=== PATIENT | female | born 1975 ===

== ENCOUNTER 2019-02-19 14:45 | Emergency (ER) | payer SELFPAY ==
[2019-02-19 14:46] VITALS: BMI 24.3
[2019-02-19 14:57] VITALS: BP 138/83; PULSE 62; RESP 16; TEMP 98; O2SAT 97
--- NOTE | 2019-02-19 15:15 | ED PDOC ---
Upper Extremity Pain/Injury Time Seen by Provider: 02/19/19 15:00 Chief Complaint (Nursing): Upper Extremity Problem/Injury Chief Complaint (Provider): Right Elbow Pain History Per: Patient History/Exam Limitations: no limitations Onset/Duration Of Symptoms: Days (x4) Current Symptoms Are (Timing): Still Present Additional Complaint(s): 43 year old female presents to the ED for evaluation of right elbow pain worse with certain movements for the past four days associate with intermittent tingling in the arm and numbness in the fingers. 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 Denies weakness, current numbness/ tingling, chest pain, and shortness of breath. Before arrival, patient took two Advils with good relief. Right hand dominant with frequent use of it at work PMD: none provided Past Medical History Reviewed: Historical Data, Nursing Documentation, Vital Signs Vital Signs: Last Vital Signs Temp 98.0 F 02/19/19 14:54 Pulse 62 02/19/19 14:54 Resp 16 02/19/19 14:54 BP 138/83 02/19/19 14:54 Pulse Ox 97 02/19/19 14:54 - Medical History PMH: No Chronic Diseases - Surgical History Surgical History: Appendectomy, Cholecystectomy - Family History Family History: States: Unknown Family Hx - Immunization History Hx Tetanus Toxoid Vaccination: No Hx Influenza Vaccination: No Hx Pneumococcal Vaccination: No - Home Medications Home Medications: Ambulatory Orders Medication Instructions Recorded Naproxen [Naprosyn] 1 tab PO BID PRN #25 tab 01/10/18 Multivit/Folic Acid/I 1 tab PO DAILY 01/10/18 [ Plus] Naproxen 500 mg PO Q12H PRN #30 tab 02/19/19 - Allergies Allergies/Adverse Reactions: Allergies Allergy/AdvReac Type Severity Reaction Status Date / Time No Known Allergies Allergy Verified 02/19/19 14:54 Review of Systems ROS Statement: Except As Marked, All Systems Reviewed And Found Negative Cardiovascular: Negative for: Chest Pain Respiratory: Negative for: Shortness of Breath Musculoskeletal: Positive for: Arm Pain (right elbow and forearm) Neurological: Positive for: Numbness (intermittent numbness and tingling to arm and fingers; not currently). Negative for: Weakness Physical Exam - Reviewed Nursing Documentation Reviewed: Yes Vital Signs Reviewed: Yes - Physical Exam Appears: Positive for: No Acute Distress Head Exam: Positive for: ATRAUMATIC, NORMOCEPHALIC Skin: Positive for: Normal Color, Warm Eye Exam: Positive for: Normal appearance Neck: Positive for: Normal, Painless ROM, Supple Cardiovascular/Chest: Positive for: Regular Rate, Rhythm Respiratory: Positive for: Normal Breath Sounds. Negative for: Respiratory Distress Pulses-Radial (L): 2+ Pulses-Radial (R): 2+ Extremity: Positive for: Normal ROM (of right upper extremity, including elbow), Capillary Refill (less than 2 seconds), Other (no swelling, erythema, break in skin integrity to right upper extremity) Neurological/Psych: Positive for: Awake, Alert, Symmetric/Intact Strength (good bilateral upper hand grasp with equal strength, but pain to right elbow with grasp), Oriented (x3). Negative for: Motor/Sensory Deficits (no numbness or tingling; sensation intact) - ECG O2 Sat by Pulse Oximetry: 97 (RA) Pulse Ox Interpretation: Normal Medical Decision Making Medical Decision Making: Time: 1525 Initial Impression: tendonitis Initial Plan: --Diagnosis discussed with patient. Arm wrapped in cortney bandage, clinic referral given for potential follow up and PT, and script for Naproxen 500 q12 given. Return parameters discussed and patient verbalized agreement/understanding of plan. Stable for discharge after all questions answered. Scribe Attestation: Documented by Julia Giraldo, acting as a scribe for Tiffanie Mckee APN. Provider Scribe Attestation: All medical record entries made by the Scribe were at my direction and personally dictated by me. I have reviewed the chart and agree that the record accurately reflects my personal performance of the history, physical exam, medical decision making, and the department course for this patient. I have also personally directed, reviewed, and agree with the discharge instructions and disposition. Disposition - Clinical Impression Clinical Impression: Elbow tendonitis - Patient ED Disposition Is Patient to be Admitted: No Counseled Patient/Family Regarding: Diagnosis, Rx Given - Disposition Referrals: [facility] [Outside] Disposition: Routine/Home Disposition Time: 15:25 Condition: GOOD Prescriptions: Naproxen 500 mg PO Q12H PRN #30 tab PRN Reason: Pain, Moderate (4-7) Instructions: Tendonitis (DC) Forms: [facility] ED School/Work Excuse
--- NOTE | 2019-02-19 15:17 | ED PDOC ---
Upper Extremity Pain/Injury Time Seen by Provider: 02/19/19 15:00 Chief Complaint (Nursing): Upper Extremity Problem/Injury Past Medical History Vital Signs: Last Vital Signs Temp 98.0 F 02/19/19 14:54 Pulse 62 02/19/19 14:54 Resp 16 02/19/19 14:54 BP 138/83 02/19/19 14:54 Pulse Ox 97 02/19/19 14:54 - Surgical History Surgical History: Appendectomy, Cholecystectomy - Family History Family History: States: Unknown Family Hx - Immunization History Hx Tetanus Toxoid Vaccination: No Hx Influenza Vaccination: No Hx Pneumococcal Vaccination: No - Home Medications Home Medications: Ambulatory Orders Medication Instructions Recorded Naproxen [Naprosyn] 1 tab PO BID PRN #25 tab 01/10/18 Multivit/Folic Acid/I 1 tab PO DAILY 01/10/18 [ Plus] Naproxen 500 mg PO Q12H PRN #30 tab 02/19/19 - Allergies Allergies/Adverse Reactions: Allergies Allergy/AdvReac Type Severity Reaction Status Date / Time No Known Allergies Allergy Verified 02/19/19 14:54 - ECG O2 Sat by Pulse Oximetry: 97 Disposition - Clinical Impression Clinical Impression: Elbow tendonitis Counseled Patient/Family Regarding: Diagnosis, Need For Followup, Rx Given - Disposition Referrals: [facility] [Outside] Disposition: Routine/Home Disposition Time: 15:16 Condition: GOOD Prescriptions: Naproxen 500 mg PO Q12H PRN #30 tab PRN Reason: Pain, Moderate (4-7) Instructions: Tendonitis (DC) Forms: [facility] ED School/Work Excuse - POA Present On Arrival: None
== END 2019-02-19 16:19 | disposition home or self-care (01) ==
LOC: H.ER 14:45
DX: M77.9 Enthesopathy, unspecified (principal)